=== PATIENT | female | born 1995 | race Caucasian/White ===

== ENCOUNTER 2019-05-04 23:59 | Inpatient (IN) ==
[2019-05-05] MEDS ORDERED: MISOPROSTOL 100 MCG TABLET VG PRN (00:08)
[2019-05-05] MEDS ORDERED: ONDANSETRON 4 MG TAB.RAPDIS PO PRN (00:08)
[2019-05-05] MEDS ORDERED: DEXTROSE 5%-LACTATED RINGERS 1,000 ML IV PRN (00:08)
[2019-05-05] MEDS ORDERED: PENICILLIN G POTASSIUM 5 MILLIONUNT in DEXTROSE 5 % IN WATER 100 ML IV ONE ×2 (00:08)
[2019-05-05] MEDS ORDERED: OXYTOCIN/DEXTROSE 5%-WATER 30 UNITS/500 ML BAG IV ONE ×2 (00:08→12:44)
[2019-05-05 01:44] LABS: Cocaine Ur Negative (NEGATIVE); Urine Barbiturate Negative (NEGATIVE); Urine Benzodiazepines Negative (NEGATIVE); Urine Opiates Negative (NEGATIVE); Urine PCP Negative (NEGATIVE); Urine THC Negative (NEGATIVE)
[2019-05-05] MEDS ORDERED: PENICILLIN G POTASSIUM 2.5 MILLIONUNT in DEXTROSE 5 % IN WATER 100 ML IV SCH ×2 (04:08)
[2019-05-05] MEDS: RINGER'S SOLUTION,LACTATED 1,000 ML IV ONE ×2 (09:14→13:10)
--- NOTE | 2019-05-05 09:16 | HP ---
Chief Complaint - Chief Complaint Date of Service: 05/05/19 Time of Service: 09:14 Chief Complaint: elective induction of labor History of Present Illness: 23 yo at 39 5/7 wks adimitted for elective induction of labor. This complicated by h/o migraines, HTN, and recurrent SAB. Unconfirmed history of seizures (pseudoseizures) and DM. Rh negative Rubella immune GBS negative Medical History (Last Reviewed 05/05/19 @ 18:02 by Arnulfo Cardenas DO) History of seizures (Chronic) Hx of migraines (Chronic) Diabetes type 2, controlled (Chronic) Acute sinus infection Onset Date: ~09/2018 Anemia Onset Date: 02/14/19 02/14/19-w/ History of threatened 16 wks with twins. Placed on bedrest. Delivered at 39 weeks GA. 2013. Body piercing Onset Date: Unknown Diabetes mellitus type 2, controlled Onset Date: ~2012 Diet controlled Migraine Onset Date: Unknown Seasonal allergies Onset Date: Unknown Seizures Onset Date: ~2016 Pt states the father of her children "put her in the hospital" and she has had intermittent seizures since. Tattoos Onset Date: Unknown UTI (urinary tract infection) Onset Date: Unknown Frequent Wears glasses Onset Date: Unknown reading glasses Mononucleosis Onset Date: ~2016 Spontaneous Onset Date: ~2012 x3 Hemorrhoids Onset Date: ~2014 Hypertension Onset Date: Unknown Intermittent-Never tx'd w/medication Surgical History: Surgical History (Last Reviewed 05/05/19 @ 09:59 by Brigido Hernandez CRNA) No surgical history Family History: Family History (Last Reviewed 05/05/19 @ 09:59 by Brigido Hernandez CRNA) Mother Alive and well Father Unknown medical history Grandmother Diabetes Grandmother Hypoglycemia Social History: (Last Reviewed 05/05/19 @ 00:28 by Fouzia Nelson RN) Social History: adopted: No group home: No Marital status: Single household members: children number of children: 2 current occupational status: employed current occupation: [employer] current occupational exposures/hazards: No Highest education level completed: some college, no degree Sexually Active: Yes Service: No Tobacco: Smoking Status: Former smoker Alcohol: alcohol intake: current alcohol intake frequency: a few times a month details: No alcohol since + UPT Substance Use: substance use type: does not use Dietary Habits: caffeine: Yes caffeine comment: 1/day-None since + UPT Exercise: frequency: does not exercise [employer]: agree to transfusion: Yes Review Of Systems (GEN) - Review of Systems Generalized/Overall Review: Present: No Symptoms Reported EENTM: Present: No Symptoms Reported Respiratory: Present: No Symptoms Reported Cardiac: Present: No Symptoms Reported Abdominal: Present: No Symptoms Reported Genitourinary: Present: No Symptoms Reported Musculoskeletal: Present: No Symptoms Reported Neurological: Present: No Symptoms Reported Skin: Present: No Symptoms Reported Endocrine: Present: No Symptoms Reported Immunizations: IMMUNIZATION HX History of Influenza Vaccine No Allergies/Adverse Reactions: Allergies Allergy/AdvReac Type Severity Reaction Status Date / Time No Known Allergies Allergy Verified 05/05/19 00:07 Home Medications: HOME MEDICATIONS NK 04/03/19 [Last Taken Unknown] Exam - Exam Vital Signs: Vital Signs - Last Taken Temp 36.7 C 05/05/19 00:29 Pulse 97 05/05/19 00:29 Resp 20 05/05/19 00:29 BP 115/69 05/05/19 00:29 Pulse Ox 99 05/05/19 00:29 Constitutional: Present: Alert, Oriented x3, Cooperative, No distress ENT Exam: Present: hearing grossly normal Neck: Present: non-tender. Absent: thyromegaly Respiratory: Present: lungs clear, no respiratory distress Cardiovascular/Chest: Present: regular rate, rhythm, no edema Abdomen: Present: soft, nontender, no rebound tenderness, other - gravid /Rectal: Present: Other - cervix 1/75/-2 Extremity: Present: no pedal edema, no calf tenderness Skin Exam: Present: normal color, warm/dry, no cyanosis Lymphatic: Present: no adenopathy Neurologic: Present: alert, normal mood/affect, oriented x 3 Appearance: Present: appropriate appearance, appropriate insight Eye contact: Present: cooperative, good eye contact Thoughts: Present: normal thought pattern, normal mood /affect Diagnostic Studies: Laboratory Results Urine Opiates Screen Negative (NEGATIVE) 05/05/19 00:55 Barbiturate Screen Negative (NEGATIVE) 05/05/19 00:55 Ur Phencyclidine Scrn Negative (NEGATIVE) 05/05/19 00:55 Urine Amphetamine Negative (NEGATIVE) 05/05/19 00:55 U Benzodiazepines Scrn Negative (NEGATIVE) 05/05/19 00:55 Urine Cocaine Screen Negative (NEGATIVE) 05/05/19 00:55 Urine Marijuana (THC) Negative (NEGATIVE) 05/05/19 00:55 Assessment/Plan - Assessment/Plan (1) Elective induction of labor planned Assessment: Admit for Cytotec induction of labor. Epidural PRN. Problem: Acute (2) Hx of migraines Problem: Chronic (3) History of pseudoseizure Problem: Acute
--- NOTE | 2019-05-05 09:17 | PN ---
Progess Note - Interim Date: 05/05/19 Time: 09:16 Narrative: 05/05/19 09:16 Patient becoming more uncomfortable with contractions, considering epidural. Vital signs stable. Pitocin at 2 mu/min. FHT: 135 baseline, reassuring contractions q 2-3 min Cervix: 4/70/-3, AROM-clear Impression: Intrauterine at 39 weeks induction of labor progressing well Plan: Continue present plan
[2019-05-05] MEDS ORDERED: BUPIVACAINE HCL/0.9 % NACL/PF 250 ML EP PRN (09:55)
[2019-05-05] MEDS ORDERED: ONDANSETRON HCL/PF 2 MG/ML VIAL IV PRN (09:55)
[2019-05-05] MEDS ORDERED: NALOXONE HCL 1 MG/1 ML SYRG IV PRN (09:55)
[2019-05-05] MEDS ORDERED: fentaNYL CITRATE/PF 50 MCG/ML AMPUL IT SCH (10:00)
--- NOTE | 2019-05-05 10:00 | ANES ---
Anesthesia Pre Procedure Eval Vitals/Labs: Last Vital Signs Temp 36.7 C 05/05/19 00:29 Pulse 97 05/05/19 00:29 Resp 20 05/05/19 00:29 BP 115/69 05/05/19 00:29 Pulse Ox 99 05/05/19 00:29 HOME MEDICATIONS NK 04/03/19 [Last Taken Unknown] Allergies/Adverse Reactions: Allergies Allergy/AdvReac Type Severity Reaction Status Date / Time No Known Allergies Allergy Verified 05/05/19 00:07 - Planned Procedure Planned Procedure: INDUCTION Medication List Reviewed:: Yes Allergies Verified: Yes Medical History (Last Reviewed 05/05/19 @ 09:58 by Brigido Hernandez CRNA) History of seizures (Chronic) Hx of migraines (Chronic) Diabetes type 2, controlled (Chronic) Acute sinus infection Onset Date: ~09/2018 Anemia Onset Date: 02/14/19 02/14/19-w/ History of threatened 16 wks with twins. Placed on bedrest. Delivered at 39 weeks [place]. 2013. Body piercing Onset Date: Unknown Diabetes mellitus type 2, controlled Onset Date: ~2012 Diet controlled Migraine Onset Date: Unknown Seasonal allergies Onset Date: Unknown Seizures Onset Date: ~2016 Pt states the father of her children "put her in the hospital" and she has had intermittent seizures since. Tattoos Onset Date: Unknown UTI (urinary tract infection) Onset Date: Unknown Frequent Wears glasses Onset Date: Unknown reading glasses Mononucleosis Onset Date: ~2016 Spontaneous Onset Date: ~2012 x3 Hemorrhoids Onset Date: ~2014 Hypertension Onset Date: Unknown Intermittent-Never tx'd w/medication Surgical History (Last Reviewed 05/05/19 @ 09:59 by Brigido Hernandez CRNA) No surgical history Family History (Last Reviewed 05/05/19 @ 09:59 by Brigido Hernandez CRNA) Mother Alive and well Father Unknown medical history Grandmother Diabetes Grandmother Hypoglycemia - Family Anesthesia History Family History:: no untoward family reactions to anesthesia, no familial bleeding tendencies, no family history of clotting disorders, no family history of premature - Airway/Neck/Teeth Within Normal Limits:: Yes Teeth Condition: intact Neck Exam: full range of motion Mallampatti Score: 2 Thyromental (T-M) distance: > 6 cm Mandibulo Hyoid distance: > 3 cm - Respiratory Respiratory Physical: lungs clear Sleep Apnea currently treated: No Sleep Apnea by current assessment: No - Cardiovascular Cardiac History: hypertension Tolerate Activity: Fair Heart Sounds: S1 & S2, Regular - Anesthesia Assessment and Plan ASA Class: PS, II, E Anesthesia Type Plan: Epidural - CSE for labor analgesia
--- NOTE | 2019-05-05 10:18 | ANES ---
Post Anesthesia Discharge - Transfer of Care Transfer of Care handoff given to nurse: Yes - Discharge from PACU Discharge from PACU when meets criteria: Yes - Comfortable post CSE.
--- NOTE | 2019-05-05 10:20 | ANES ---
Anesthesia Procedure Note Procedure Note: ANESTHESIA PROCEDURE NOTE Date of Procedure: [05/05/2019 Time of procedure: 9:55 AM. Performed by: YENNIFER Delatorre CRNA, MSN Envelope Fold Operator: Jane Suggs RN. Preprocedure diagnosis: Active labor, labor pain. Post procedure diagnosis: Same. Procedure:Epidural for labor analgesia L3-4. Indications: Labor pain. Findings: See below. Details of the procedure: The patient was placed on the side of the bed in sitting positionand prepped with DuraPrep then draped in a sterile fashion. Lidocaine 1% was infiltrated to the skin and subcutaneous tissues at the level of the L3-4 interspace. Of note Eleazar is currently sensitive to all tactile stimulation as injection of local anesthesia and beyond resulted in an unusually focal response discomfort. An 18-gauge Touhy needle was used to approach the epidural space with loss of resistance technique. Once loss of resistance was achieved a 27-gauge spinal needle was passed through the epidural needle and CSF was contacted. After CSF returned, 20 mcg of fentanyl was injected in the spinal needle was removed the epidural catheter was then threaded approximately 4 cm in the epidural needle was removed. The catheter was taped in place and after careful aspiration 3 mL of 1.5% lidocaine with 1-200,000 epinephrine was injected without change in maternal heart rate or sensorium. . EBL: Minimal. Fluids: N/A. Specimen: N/A. Post procedure condition: The patient tolerated the procedure well with good relief. No complications were noted. Thank you for this consultation. Brigido Hernandez CRNA, ARNP, MSN
--- NOTE | 2019-05-05 10:34 | ANES ---
Post Anesthesia Assessment - Vital Signs Vitals: Last Vital Signs Temp 36.7 C 05/05/19 00:29 Pulse 97 05/05/19 00:29 Resp 20 05/05/19 00:29 BP 115/69 05/05/19 00:29 Pulse Ox 99 05/05/19 00:29 Airway Patency: Normal - Mental Status Level Of Consciousness: Awake, Alert, Appropriate - Pain Level Pain Score: 0 - N/V Assessment Nausea/Vomiting Presence: None Dehydration:: No
--- NOTE | 2019-05-05 12:42 | OR ---
Operative Report - Dictated Report Narrative: Spontaneous vaginal delivery of vigorously crying viable female at 1217 on 05/05/2019 with Apgars 8 9, weighing 3512 g in EREN position with tight nuchal cord x1. Cord clamping delayed approximately 1 minute Placenta delivered complete, intact, with three vessel cord Estimated blood loss: 100 mL Anesthesia: Epidural Lacerations: Second-degree vaginal laceration (3 cm) repaired with 3-0 Vicryl Rapide History for MU History for Definition: * The number of deliveries resulting in a live the patient experienced prior to current hospitalization * The previous delivery of live twins or any live multiple gestation is considered one live event. *If primagravida or nulliparous is documented select zero for the number of previous live births. Live Events: Live Events: 2
[2019-05-05] MEDS ORDERED: BISACODYL 10 MG SUPP.RECT RC PRN (12:44)
[2019-05-05] MEDS ORDERED: ACETAMINOPHEN 325 MG TABLET PO PRN (12:44)
[2019-05-05] MEDS ORDERED: HYDROCORTISONE 30 APPL TUBE TP PRN (12:44)
[2019-05-05] MEDS ORDERED: oxyCODONE HCL/ACETAMINOPHEN 1 TAB TABLET PO PRN (12:44)
[2019-05-05] MEDS ORDERED: BENZOCAINE/MENTHOL 81 SPRAY CAN TP PRN (12:44)
[2019-05-05] MEDS ORDERED: GLYCERIN/WITCH HAZEL LEAF 40 APPL BOX TP PRN (12:44)
[2019-05-05] MEDS ORDERED: SENNOSIDES 8.6 MG TABLET PO PRN (12:44)
[2019-05-05] MEDS ORDERED: MISOPROSTOL 100 MCG TABLET RC STA (13:07)
[2019-05-05] MEDS ORDERED: RINGER'S SOLUTION,LACTATED 1,000 ML IV ONE (13:09)
[2019-05-05] MEDS ORDERED: LACTATED RINGERS IV STA (13:09)
[2019-05-05] MEDS ORDERED: DEXTROSE 5% IV STA (13:09)
[2019-05-05] MEDS: IBUPROFEN 800 MG TABLET PO PRN ×2 (15:27→21:37)
[2019-05-05] MEDS ORDERED: MISOPROSTOL 200 MCG TABLET RC STA (15:35)
--- NOTE | 2019-05-05 19:20 | PN ---
Progess Note - Interim Date: 05/05/19 Time: 19:15 - seen at 1310 Narrative: 05/05/19 19:15 Called by nurse to see patient for excessive bleeding. Instructed nurse to give 800 mcg of Cytotec rectally and increase Pitocin drip to 30 milliunits/min with IV bolus of fluids until I arrived. Patient was asymptomatic but had soaked through one large pad. Uterus was evacuated of approximately 450 mL of clotted blood. Uterus was firm and bleeding was mild/moderate. Vital signs stable. Impression: hemorrhage due to uterine atony with estimated blood loss of approximately 500 mL. Good response to IV Pitocin and rectal Cytotec. Plan: Continue close monitoring of patient's bleeding and vital signs.
[2019-05-05] MEDS: DOCUSATE SODIUM 100 MG CAPSULE PO SCH (21:37)
--- NOTE | 2019-05-06 09:15 | PN ---
Subjective - Date and Time Seen Date: 05/06/19 Time: 09:15 Objective - Vitals Vitals: Last Vital Signs Temp 35.8 C L 05/06/19 07:10 Pulse 98 05/06/19 07:10 Resp 18 05/06/19 07:10 BP 124/82 05/06/19 07:10 Pulse Ox 98 05/06/19 07:10 Patient denies complaints. Breast-feeding well. Lochia wnl abdomen - soft, nontender Uterus -firm, at umbilicus - 1 no calf tenderness Impression: day #1 - s/p spontaneous vaginal delivery. Mild hemorrhage-resolved Plan: Continue routine care Assessment/Plan - Problems/Diagnosis (1) Elective induction of labor planned Problem: Acute (2) Hx of migraines Problem: Chronic (3) History of pseudoseizure Problem: Acute
[2019-05-06] MEDS: IBUPROFEN 800 MG TABLET PO PRN ×2 (09:50→18:03)
[2019-05-06] MEDS: DOCUSATE SODIUM 100 MG CAPSULE PO SCH ×2 (09:51→21:08)
[2019-05-06] MEDS: FERROUS SULFATE 325 MG TABLET PO SCH (18:03)
[2019-05-07] MEDS: IBUPROFEN 800 MG TABLET PO PRN (00:03)
[2019-05-07 08:02] VITALS: BP 127/6
--- NOTE | 2019-05-07 09:05 | PN ---
Subjective - Date and Time Seen Date: 05/07/19 Time: 09:04 Objective - Vitals Vitals: Last Vital Signs Temp 36.6 C 05/07/19 08:01 Pulse 96 05/07/19 08:01 Resp 16 05/07/19 08:01 BP 127/6 05/07/19 08:01 Pulse Ox 99 05/07/19 08:01 Patient denies complaints. Breast-feeding Lochia wnl abdomen - soft, nontender Uterus -firm, at umbilicus - 2 no calf tenderness Impression: day #2 - s/p spontaneous vaginal delivery. Plan: Routine discharge instructions Assessment/Plan - Problems/Diagnosis (1) Elective induction of labor planned Problem: Acute (2) Hx of migraines Problem: Chronic (3) History of pseudoseizure Problem: Acute
[2019-05-07] MEDS: FERROUS SULFATE 325 MG TABLET PO SCH (12:26)
[2019-05-07] MEDS: DOCUSATE SODIUM 100 MG CAPSULE PO SCH (12:26)
== END 2019-05-07 11:45 | disposition home or self-care (01) | DRG 768 ==
LOC: OB 23:59
PROVIDERS: ADMIT Obstetrics & Gynecology; ATTEND Obstetrics & Gynecology
CPT/HCPCS: 59025; 80307